=== PATIENT | male | born 1940 | race Caucasian/White ===

== ENCOUNTER 2017-07-26 08:27 | Outpatient (CLI) | payer MEDICARE, BC ==
--- NOTE | 2017-07-26 13:38 | NM ---
NUCLEAR MEDICINE MYOCARDIAL PERFUSION SCAN: 07/26/2017 HISTORY: Chest pain. COMPARISON: None. TECHNIQUE: SPECT imaging of the left ventricular myocardium is obtained during rest and stress, following the in travenous administration of 9 and 31.5 millicuries of technetium 99m labeled sestamibi. FINDINGS: There is a small, fixed defect at the cardiac apex with myocardial thinning. The differential diagno sis includes an area of physiologic thinning versus prior infarction. No reversible defect is seen. Left ventricular wall motion appears normal, which would favor thinning at the apex over prior small infarction. TID is 1.27. EDV is 130 mL. ESV is 68 mL. Left ventricular ejection fraction is approximately 48%. IMPRESSION: 1. Fixed defect at the cardiac apex. No reversible defect seen. 2. TID of 1.27. 3. Normal left ventricular wall motion. 4. Left ventricular ejection fraction estimated at 48%. POS: MICHAEL
[2017-07-26] MEDS ORDERED: ADENOSINE 60 MG/20 ML VIAL ONE (17:25)
== END 2017-07-26 08:28 | disposition home or self-care (01) ==
LOC: NM 08:27
PROVIDERS: ATTEND Family Medicine
DX: R07.9 Chest pain, unspecified (principal)
CPT/HCPCS: 78452; 93017; A9500; J0153

== ENCOUNTER 2018-02-15 09:00 | Outpatient (CLI) | payer MEDICARE, BC ==
--- NOTE | 2018-02-15 10:50 | CT ---
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 COMPARISON: None. TECHNIQUE: Postcontrast soft tissue neck CT is performed in the axial plane. Reformatted images are submitted fo r interpretation. FINDINGS: Visualized brain parenchyma is unremarkable. Bilateral ocular lenses are appropriately located. Both globes are intact. Retrobulbar fat is preserv ed. Note, the entire orbits are not included on this exam. Adequate aeration of the visualized sinuses and mastoid air cells. Aerodigestive tract is patent. No mucosal abnormality. There is mild fullness of the palatine tonsils , nonspecific. Midline fatty raphe of the tongue is preserved. No significant lymphoid hyperplasia at the tongue base. Epiglottis is unremarkable. Preepiglottic fat is preserved. The supraglottic, glott ic, and subglottic larynx is patent. Submandibular glands and parotid glands have symmetric attenuation. Enlarged right thyroid lobe measuring at least 2.5 x 2.3 cm. Incomplete evaluation. Grossly, the great vessels of the neck are patent. No significant stenosis. No evidence of lymphadenopathy by size criteria. Upper mediastinum is unremarkable. Lung apices demonstrate minimal ground-glass opacities. IMPRESSION: 1. Enlarged right thyroid lobe. Nonemergent thyroid ultrasound is recommended. 2. No evidence of lymphadenopathy. 3. Mild prominence of the palatine tonsils bilaterally, which is nonspecific. POS: [facility]
--- NOTE | 2018-02-15 11:17 | CT ---
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 COMPARISON: CT abdomen and pelvis without contrast stone protocol dated 04/04/16. FINDINGS: There is a 4.0 mm somewhat ovoid nodule within the right middle lobe, series 3, image 40. No other pu lmonary nodules present. No adenopathy of the mediastinum. There is an approximately 2.8 cm nodule within the right lobe of the thyroid. The pulmonary arterial size is normal. Mild coronary artery calcifications. The thoracic aorta is nonaneurysmal. Liver is unremarkable. Small hypodensity hepatic segment 5, unchanged from a 2016 examination, sugges tive of a cyst. There is also a hypodensity interpolar left kidney measuring fluid attenuation and doherty s not changed from 2016 suggestive of a simple cyst. Moderate atherosclerotic plaque aortoiliac system. No dilated loops of large or small bowel. Mild div erticular disease of sigmoid colon with active current inflammation. In hepatic segment 7, abutting the diaphragm, is a focal 7.0 mm area of what appears to be round enha ncement. There is adjacent motion artifact. Portal vein is patent. Gallbladder is unremarkable. Spleen is unremarkable. No perinephric stranding. Bilateral hip arthroplasties are in place. Advanced degenerative disease of the pubic symphysis. Adva nced degenerative changes of the left SI joint with fusion. Posterior superior SI joint. There is a subtle cortical lucency involving the inner table of the left 6th rib. Total sclerosis pos terolateral left 10th rib. Moderate facet arthrosis lower lumbar spine. IMPRESSION: 1. 4.0 mm nodule within the right middle lobe is not definitively malignant. Close attention on foll ow-up imaging is recommended. 2. Single focal area of hyperenhancement within the hepatic segment 7 near the dome measuring just u nder 7.0 mm, series 2, image 56. Malignancy is a possibility, although too small to fully characteriz e. Attention on follow-up imaging recommended. POS: MICHAEL
== END 2018-02-15 09:01 | disposition home or self-care (01) ==
LOC: CT 09:00
PROVIDERS: ATTEND Internal Medicine Hematology & Oncology
DX: C43.8 Malignant melanoma of overlapping sites of skin (principal); R91.1 Solitary pulmonary nodule; E04.9 Nontoxic goiter, unspecified
CPT/HCPCS: 70491; 71260; 74177; 82565

== ENCOUNTER 2018-05-17 14:16 | Outpatient (CLI) | payer MEDICARE, BC ==
--- NOTE | 2018-05-17 16:12 | ULT ---
CAROTID ULTRASOUND: 05/17/18 COMPARISON: None. HISTORY: Dizziness. TECHNIQUE: Multiplanar luna scale and color doppler images were obtained in a carotid ultrasound. Spectral darshan lysis of the doppler waveforms were performed. FINDINGS: A minimal amount of plaque is seen surrounding both carotid bifurcations. The doppler waveforms are n ormal bilaterally. Peak systolic velocity in the right ICA is 120 cm/s. The peak systolic velocity in the right CCA is 1 00 cm/s. The right ICA/CCA ratio is 1.2. Peak systolic velocity in the left ICA is 89 cm/s. peak systolic velocity in the left CCA is 102 cm/s . The left ICA/CCA ratio is 0.9. Both vertebral arteries demonstrate antegrade flow without focal stenosis. IMPRESSION: No evidence of hemodynamically significant stenosis. POS: MICHAEL
== END 2018-05-17 14:17 | disposition home or self-care (01) ==
LOC: BICULT 14:16
PROVIDERS: ATTEND Family Medicine
DX: R55 Syncope and collapse (principal)
CPT/HCPCS: 93880

== ENCOUNTER 2018-05-22 08:16 | Outpatient (CLI) | payer MEDICARE, BC ==
--- NOTE | 2018-05-22 11:22 | CT ---
CHEST CT SCAN WITH IV CONTRAST: History: 77-year-old male with history of nodule. Patient has melanoma. 4 mm nodule in the right middle lobe. Comparison: 02-15-18 FINDINGS: Nodular enlargement of the right lobe of the thyroid, stable. Small, 0.4 cm diameter circumscribed no dule in the right middle lobe, stable. Stable circumscribed low attenuation focus in the caudal aspec t of the right lobe of the liver, statistically a small cyst. Calcifications within the pancreas, jennifer dence for chronic pancreatitis. No mediastinal mass or adenopathy. No pleural effusion or pericardial effusion. Three vessel coronary artery calcific disease. The previously mentioned focus of hyperinte nsity involving the subdiaphragmatic liver is not redemonstrated on this study and may well have repr esented some artifact. IMPRESSION: Stable 0.4 cm diameter circumscribed nodule in the right middle lobe. Stable enlarged nodular right l obe of thyroid. Small stable right lobe of liver probable cyst. Stable scattered pancreatic punctate calcifications. No evidence for other significant new process. POS: MICHAEL
[2018-05-22] MEDS ORDERED: Iopamidol 370 76% 100 ML VIAL ONE (15:03)
== END 2018-05-22 08:17 | disposition home or self-care (01) ==
LOC: BICCT 08:16
PROVIDERS: ATTEND Internal Medicine Hematology & Oncology
DX: E04.1 Nontoxic single thyroid nodule (principal); C43.8 Malignant melanoma of overlapping sites of skin
CPT/HCPCS: 71260; 82565

== ENCOUNTER 2018-11-28 08:41 | Outpatient (CLI) | payer MEDICARE, BC ==
[~2018-11-28 08:41] MED LIST: ISOVUE-370 76%-LOCM 1 ML ONE
--- NOTE | 2018-11-28 10:09 | CT ---
CT CHEST WITH IV CONTRAST: HISTORY: Lung nodule, malignant melanoma COMPARISON: 05/22/2018 FINDINGS: Right thyroid lobe enlargement is stable. No mediastinal, hilar or axillary mass or lymphadenopathy s een. There is no evidence of thoracic aortic aneurysm or dissection. No pleural or pericardial effusions are seen. 4 mm solid nodule in the right middle lobe is stable. No new lung nodules are identified. There are degenerative changes in the spine. Vascular calcifications are again seen. Pancreatic calci fications in the upper abdominal tomograms are redemonstrated. IMPRESSION: Stable exam.
== END 2018-11-28 08:42 | disposition home or self-care (01) ==
LOC: BICCT 08:41
PROVIDERS: ATTEND Internal Medicine Hematology & Oncology
DX: R91.1 Solitary pulmonary nodule (principal)
CPT/HCPCS: 71260; Q9966

== ENCOUNTER 2019-07-12 07:34 | Outpatient (CLI) | payer MEDICARE, BC ==
--- NOTE | 2019-07-12 09:09 | CT ---
CT CHEST WITH IV CONTRAST: INDICATION: Enlarged lymph nodes. Palpable left axillary lymph node. Known pulmonary nodules which have been fo llowed. COMPARISON: Comparison made to CT chest 11/28/2018 and 05/22/2018. FINDINGS: Lungs show no evidence of infiltrate or effusion. The 4 mm nodule in the right middle lobe which has been described previously is again seen and is unc hanged from prior studies. There is a 6 mm nodule in the left lower lobe which is stable from 11/28/2018. This nodule has increa sed slightly when compared to 05/22/2018. No other pulmonary nodule identified. The mediastinum is unremarkable with nonspecific lymph nodes which are stable. No evidence of medias tinal adenopathy. Review of the axilla shows nonspecific axillary lymph nodes which appear stable. There is a left axi llary lymph node measuring 1.3 cm which is unchanged from the prior studies. Nonspecific axillary ly mph nodes are seen bilaterally which appear stable. The right lobe of the thyroid is enlarged and heterogeneous and has been described previously. This remains stable. Osseous structures are unremarkable and stable. Images through the upper abdomen are unremarkable. IMPRESSION: 1. There are 2 pulmonary nodules as described above, 1 in the right middle lobe and another in the l eft lower lobe. These are stable from the prior exam of 11/28/2018. 2. Nonspecific axillary lymph nodes are unchanged. 3. The enlarged heterogeneous right lobe of thyroid is stable. POS: MICHAEL
== END 2019-07-12 07:35 | disposition home or self-care (01) ==
LOC: BICCT 07:34
PROVIDERS: ATTEND Internal Medicine Hematology & Oncology
DX: C43.9 Malignant melanoma of skin, unspecified (principal); R59.0 Localized enlarged lymph nodes; R91.8 Other nonspecific abnormal finding of lung field; E04.9 Nontoxic goiter, unspecified
CPT/HCPCS: 71260

== ENCOUNTER 2019-08-29 07:34 | Outpatient (CLI) | payer MEDICARE, BC ==
[2019-08-29] MEDS ORDERED: ADENOSINE 60 MG/20 ML VIAL ONE ×2 (09:32→09:35)
--- NOTE | 2019-08-29 11:19 | NM ---
Pharmacologic myocardial perfusion study HISTORY: Chest pain, unspecified. COMPARISON: 07/26/2017 FINDINGS: There is normal uptake and distribution of radiotracer seen throughout the left ventricular myocardiu m. No reversible defect is seen between the stress and resting acquisitions. Quantitative analysis shows no significant reversible defect. Gated images demonstrate normal ventricular wall motion and w all thickening. The calculated left ventricular ejection fraction is 54%. Left ventricular ejection fraction on prior study in 2018 was 48%. IMPRESSION: 1. Normal myocardial perfusion study without evidence of a reversible defect seen to suggest ischemia . 2. Left ventricular ejection fraction of 54%.
== END 2019-08-29 07:35 | disposition home or self-care (01) ==
LOC: NM 07:34
PROVIDERS: ATTEND Family Medicine
DX: R07.9 Chest pain, unspecified (principal)
CPT/HCPCS: 78452; 93017; A9500; J0153

== ENCOUNTER 2020-01-07 08:41 | Outpatient (CLI) | payer MEDICARE, BC ==
--- NOTE | 2020-01-07 10:15 | MRI ---
MR the lumbar spine without contrast INDICATION: 71-year-old male with low back pain COMPARISON: None. TECHNIQUE: Multiplanar multisequence MR images were obtained of lumbar spine without IV contrast. FINDINGS: Bone marrow: There is Modic endplate degenerative change at L3-4 and L4-5. Distal spinal cord and conus: Normal. The conus seen to terminate at L1-L2. Visualized retroperitoneum and paraspinal soft tissues: There is partial visualization of a 1.7 cm T2 hyperintense lesion involving the lateral mid left kidney seen on a prior CT dated February 15, 2018 likely reflecting a cyst. There is an 8 mm cyst involving the anterior aspect of the right mid kidney . No pathologically enlarged lymph nodes are evident. Vertebral levels: L5-S1: There is an asymmetric to the left broad-based disc osteophyte complex and facet joint degener ative change inducing moderate left lateral recess narrowing with without definite impingement of the traversing S1 nerve root. The disc degenerative and facet osteoarthritic change in addition to lo ss of disc space height induces mild to moderate left and mild right neural foraminal narrowing.. L4-5: There is a broad-based disc osteophyte complex with facet hypertrophy and ligament flavum hyper trophy inducing severe central canal narrowing with moderate to severe bilateral neural foraminal narrowing. L3-4: There is a broad-based disc bulge with facet hypertrophy and ligamentum flavum hypertrophy lanre cing severe central canal narrowing with [id number] right and mild left neural foraminal narrowing. L2-3: There is a broad-based bulge and facet hypertrophy inducing mild central canal narrowing and mi ld neural foraminal narrowing. L1-L2: There is a mild broad-based bulge inducing no appreciable central canal or neural foraminal na rrowing. T12-L1: No appreciable central canal or neuroforaminal narrowing. IMPRESSION: 1. Severe central canal narrowing at L3-4 and L4-5. 2. Moderate to severe bilateral neural foraminal narrowing at L4-5. 3. Mild to moderate right and mild left neural foraminal narrowing at L3-4. 4. Mild to moderate left and mild right neural foraminal narrowing at L5-S1. 5. Bilateral renal cysts.
== END 2020-01-07 08:42 | disposition home or self-care (01) ==
LOC: SCSMRI 08:41
PROVIDERS: ATTEND Family Medicine
DX: M51.06 Intervertebral disc disorders with myelopathy, lumbar region (principal); M48.061 Spinal stenosis, lumbar region without neurogenic claudication; M48.07 Spinal stenosis, lumbosacral region; N28.1 Cyst of kidney, acquired
CPT/HCPCS: 72148

== ENCOUNTER 2020-01-25 09:43 | Outpatient (CLI) | payer MEDICARE, BC ==
--- NOTE | 2020-01-25 11:36 | RAD ---
LUMBAR SPINE 3 VIEWS: Lateral views obtained in neutral, flexion, and extension. INDIDCATION: Lumbar spinal stenosis. Low back pain. FINDINGS: Prominent hypertrophic degenerative changes are present with prominent osteophytes seen from the ante rolateral lumbar vertebra, most pronounced at L2-3, L3-4, L4-5, and L5-S1. There is loss of disc spac e at all of these levels. Prominent facet hypertrophy. No evidence of spondylolisthesis. No significa nt change in alignment with flexion or extension. IMPRESSION: Moderate hypertrophic degenerative changes as described. POS: [facility]
== END 2020-01-25 09:44 | disposition home or self-care (01) ==
LOC: SCSRAD 09:43
PROVIDERS: ATTEND Neurological Surgery
DX: M48.061 Spinal stenosis, lumbar region without neurogenic claudication (principal); M47.816 Spondylosis without myelopathy or radiculopathy, lumbar region; M25.78 Osteophyte, vertebrae; M51.86 Other intervertebral disc disorders, lumbar region; M51.87 Other intervertebral disc disorders, lumbosacral region
CPT/HCPCS: 72100

== ENCOUNTER 2020-02-11 07:33 | Outpatient (CLI) | payer MEDICARE, BC, OTHER ==
[2020-02-11 16:49] LABS: Hemoglobin 14.6 g/dL (14.0-18.0); Mean Corpuscular HGB CONC 32.7 g/dL (32.0-36.0); Mean Corpuscular Hemoglobin 26.9 pg (27.0-31.0); Mean Corpuscular Volume 82.3 fL (78.0-98.0); Platelet Count 199 thou/uL (130-400); RBC Distribution Width 13.1 % (11.5-14.5); Red Blood Cell (RBC) Count 5.44 mill/uL (4.70-6.10); White Blood Cell (WBC) Count 6.8 thou/uL (4.8-10.8)
[2020-02-11 16:50] LABS: INR-International Normal Ratio 0.9; PTT 29.2 sec (22.9-36.1); Prothrombin Time 11.7 sec (12.0-14.7)
[2020-02-12 12:06] LABS: SARS-CoV-2 MS2 Positive; SARS-CoV-2 N Gene Negative; SARS-CoV-2 S Gene Negative; SARS-CoV-2 by NAA Not Detected (NotDetected); SARS-CoV-2 orf1ab Negative
== END 2020-02-11 07:34 | disposition home or self-care (01) ==
LOC: LABBT 07:33
PROVIDERS: ATTEND Neurological Surgery
DX: Z01.818 Encounter for other preprocedural examination (principal); Z11.59 Encounter for screening for other viral diseases; M48.061 Spinal stenosis, lumbar region without neurogenic claudication
CPT/HCPCS: 85027; 85610; 85730; 93005; U0003; 87635; 93010

== ENCOUNTER 2020-02-14 10:08 | Observation (INO) | payer MEDICARE, BC ==
--- NOTE | 2020-02-12 22:31 | HP ---
REASON FOR H AND P: Laminectomy, case #[id number] on February 14, 2020. CHIEF COMPLAINT: Lower back and bilateral leg pain. HISTORY OF PRESENT ILLNESS: Mr. Benjamin is a 79 year-old gentleman with left leg pain greater than his right leg pain. He describes pain radiating into his left gluteal muscle and posterior thigh, not passing his knee. He can walk about two blocks, but sometimes if he walks too far, his left leg causes him to stumble. He has been receiving lumbar epidural injections, which have not been helping. Denies any bladder or bowel dysfunction. REVIEW OF SYSTEMS: CONSTITUTIONAL: Denies fever or chills. EARS, NOSE, AND THROAT: Denies change in vision or hearing. CARDIAC: Denies chest pain, shortness of breath, or diaphoresis. PULMONARY: Denies shortness of breath, cough, or hemoptysis. GI: Denies fecal incontinence, abdominal pain, nausea, vomiting, diarrhea, change in stool formation and consistency. : Denies urinary incontinence, trouble with urination, frequency of urination , or bloody urine. SKIN: Denies skin rash, bruising, bleeding, or skin masses. MUSCULOSKELETAL: As per history of present illness. NEUROLOGICAL: As per history of present illness. PSYCHOLOGICAL: Denies anxiety, depression, or behavior changes. PAST MEDICAL HISTORY: HTN, BPH, melanoma in situ, chin and right cheek. PAST SURGICAL HISTORY: As stated before, left hip replacement in 2015, right hip replacement in 2010, melanoma biopsies in 2017, and diskectomy L4-5 in 1969. HOSPITALIZATIONS: Left hip replacement in 2015, eye infection in 2014, and right hip replacement in 2010. FAMILY HISTORY: Father , diagnosed with none. Mother , diagnosed with stroke. Siblings , diagnosed with cancer. SOCIAL HISTORY: Former smoker, quit in 2008. Currently lives with spouse. Denies alcohol or illicit drugs. MEDICATIONS: 1. Baby aspirin. 2. Losartan 100 mg. 3. Amlodipine 5 mg. 4. Dutasteride 0.5 mg. PHYSICAL EXAMINATION: VITAL SIGNS: Weight 217, height 72 inches. HEENT: Pupils are equal. Extraocular movements are intact. NECK: Soft, supple. No masses are noted. Range of motion is intact and nonpainful. NEUROLOGICAL: Awake, alert, and oriented x3. Memory, attention, fund of knowledge normal. Cranial nerves grossly intact. Lower extremity, slight weakness in his left leg. Gait and station: [id number] normal, normal gait, tandem walking acceptable. He can walk on his heels and toes. IMAGING: MRI L-spine: L3-4 and L4-5 severe stenosis, left L5-S1 lat recess. L-spine x-ray: Flex/ex normal, stable. ASSESSMENT: 1. Spinal stenosis, lumbar region without neurogenic claudication. 2. Radiculopathy of the lumbar region. MRI of the L-spine: Multiple levels of canal stenosis and foraminal narrowing. PLAN: 1. L3-4, L4-5 laminectomy. Left L5-S1 hemilaminectomy, microdiskectomy. 2. Preop labs: CBC, PT/PTT, COVID-19. 3. Anesthesia clearance. 4. Informed consent: We discussed the indications, risks, benefits, alternatives, and expected results from surgery. The risks discussed included, but were not limited to, bleeding, infection, CSF leak, nerve damage, weakness, incontinence, cauda equina injury, arachnoiditis, paralysis, ventilator dependency, wheelchair dependency, loss of vision, cardiopulmonary complications of anesthesia or . Long-term complications discussed included, but were not limited to spinal instability and future surgery. He understands the risks and is willing to proceed. Job ID: [id number] [facility]
[~2020-02-14 10:08] MED LIST changes: +Dexamethasone 20 MG/5 ML VIAL ONE; +EPHEDRINE 25 MG/5 ML SYRINGE ONE; +Glycopyrrolate 0.2 MG/ML 5 ML SYRINGE ONE; -ISOVUE-370 76%-LOCM 1 ML ONE; +Lidocaine 1% PF 5 ML VIAL ONE; +Ondansetron PF 4 MG/2 ML Vial ONE; +PHENYLEPHRINE-NS 100 MCG/ML 10 ML SYRINGE ONE; +PROPOFOL 200 MG/20 ML VIAL ONE; +Rocuronium Bromide 10 MG/ML (10ML VIAL) ONE
[2020-02-14] MEDS ORDERED: Thrombin 5000 UNITS/5 ML VIAL ONE ×2 (10:39)
[2020-02-14] MEDS ORDERED: Bupivacaine PF 0.5% 30 ML VIAL ONE (10:39)
[2020-02-14] MEDS ORDERED: EPINEPHrine 1 MG/ML AMP ONE (10:39)
[2020-02-14] MEDS ORDERED: Fentanyl 250 MCG/5 ML VIAL ONE (12:05)
[2020-02-14] MEDS ORDERED: Phenylephrine 10 MG/ML VIAL ONE (13:52)
[2020-02-14] MEDS ORDERED: Bacitracin Zinc Ointment 30 gm TUBE ONE (16:09)
--- NOTE | 2020-02-14 16:21 | OP ---
DATE OF PROCEDURE: 02/14/2020 VOCATIONAL PSYCHOLOGIST: Efren Chandler PA-C PREOPERATIVE INDICATION: Treat pain and prevent neurological deterioration. 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 PROCEDURE PERFORMED: Decompressive laminectomy, medial facetectomy, foraminotomy L3-L4, L4-5, and left L5-S1, revision operation. PREOPERATIVE MEDICATION: Ancef 2 g IV. DRAIN NUMBER: Zero. DRAIN TYPE: None. DESCRIPTION OF PROCEDURE: The patient was brought to the operating room. General endotracheal anesthesia was induced. The patient was carefully positioned on the operating table with his chest and hips supported by gel-filled chest rolls. A lateral fluoro radiograph confirmed that the previous incision could give us access from L3 to the sacrum. Incision was marked out and the lumbar skin was sterilely prepped and draped. We opened with a 10 blade knife and we controlled the bleeding with bipolar and monopolar cautery. We used monopolar cautery to dissect through subcutaneous tissues to the thoracodorsal fascia. We incised the fascia in the midline and reflected paraspinal muscles and scar tissue off the spinous process and lamina of L3, L4, L5 and the top of the sacrum. A lateral fluoro radiograph confirmed the levels upon which we were operating. We then used an Adson rongeur and a high-speed drill to remove the spinous processes from L3 to the left side of L5 and the top of the sacrum on the left side as well as thinning of the laminar bone with a drill. Using Kerrison rongeurs, we fashioned a laminectomy on the left at L5-S1 and bilaterally at L4-L5 and L3-L4. We took our laminectomy all the way to the pedicles of L3 and down past the S1 foramen on the left side. With midline laminectomy completed, we turned our attention to decompressing the lateral recesses. Here, scar tissue was adherent to the lateral confines of the spinal canal at L4-L5 and L5-S1 and this required careful freeing of scar. Once the thecal sac was mobile, we widened our laminectomy defect with Kerrison rongeurs. We performed medial facetectomies at L3-L4 and L4-L5 bilaterally and L5-S1 on the left side. We performed foraminotomies over the exiting L3, L4, L5, and left S1 nerve roots. We ensured a Irizarry ball probe could pass through the canal out the foramen with each nerve root without impingement. We then waxed the bone edges. We infused local anesthetic in the paraspinal muscles. We treated the wound with vancomycin powder and we closed in anatomical layers. This was a clean case, no contamination. Job ID: [id number]
[2020-02-14] MEDS ORDERED: HYDROmorphone 2 MG/ML VIAL SLOW IVP PRN (16:30)
[2020-02-14] MEDS ORDERED: Promethazine HCl 25 MG/ML VIAL SLOW IVP PRN (16:30)
[2020-02-14] MEDS ORDERED: Ondansetron HCl/PF 4 MG/2 ML Vial IVP PRN (16:30)
[2020-02-14] MEDS ORDERED: Promethazine HCl 25 MG/ML VIAL IM PRN (16:34)
[2020-02-14] MEDS ORDERED: Bisacodyl 10 MG SUPP PR PRN (16:34)
[2020-02-14] MEDS ORDERED: Mag-Al 1200 mg/1200 mg/30 ML UDCUP PO PRN (16:34)
[2020-02-14] MEDS ORDERED: diphenhydrAMINE 25 MG CAP PO PRN (16:34)
[2020-02-14] MEDS ORDERED: Milk Of Magnesia 30 ML UDCUP PO PRN (16:34)
[2020-02-14] MEDS ORDERED: Acetaminophen/Codeine 30-300mg Tablet PO PRN (16:34)
[2020-02-14] MEDS ORDERED: tiZANidine HCl 4 MG TAB PO PRN (16:34)
[2020-02-14] MEDS ORDERED: traMADol HCl 50 MG TAB PO PRN (16:34)
[2020-02-14] MEDS ORDERED: Tamsulosin HCl 0.4 MG CAP PO PRN (16:34)
[2020-02-14] MEDS ORDERED: Prochlorperazine 10 MG/2 ML VIAL IM PRN (16:34)
[2020-02-14] MEDS ORDERED: Acetaminophen 325 MG TAB PO PRN (16:34)
[2020-02-14] MEDS ORDERED: Scopolamine 1.5 mg/72 hour Patch TD PRN (16:34)
[2020-02-14] MEDS ORDERED: Fentanyl 100 MCG/2 ML VIAL ONE ×2 (16:44→17:06)
[2020-02-14] MEDS ORDERED: HYDROmorphone 2 MG/ML VIAL ONE (17:13)
[2020-02-14] MEDS ORDERED: Tamsulosin HCl 0.4 MG CAP ONE (17:36)
[2020-02-14] MEDS: Sodium Chloride 0.9% 1,000 ML IV SCH (20:24)
[2020-02-14] MEDS: CEFAZOLIN 2 GM in Premix Bag 1 BAG IVPB SCH (20:54)
[2020-02-14] MEDS: Morphine 2 MG/ML VIAL SLOW IVP PRN (21:03)
[2020-02-15] MEDS: Morphine 2 MG/ML VIAL SLOW IVP PRN ×3 (01:51→14:13)
[2020-02-15] MEDS: CEFAZOLIN 2 GM in Premix Bag 1 BAG IVPB SCH (04:11)
[2020-02-15] MEDS: Sodium Chloride 0.9% 1,000 ML IV SCH ×2 (04:16→08:42)
[2020-02-15 04:18] VITALS: BMI 29.1
--- NOTE | 2020-02-15 07:11 | PRG ---
DATE OF SERVICE: 02/15/2020 I saw Mr. Benjamin in his hospital room this morning. He is admitted on 23-hour observation following a lumbar laminectomy. His back has been sore, but each time he has gotten out of bed overnight to use the restroom, it has been easier for him to stand and walk. He does not notice the radiating radicular pain down the legs. Overnight, the highest temperature recorded among the electronic vital signs was 99.2 degrees Fahrenheit. Blood pressures have ranged between the 120s and 150s. I do not find any new weakness or numbness in the legs. Once Mr. Benjamin mobilizes with physical therapy and our nursing staff, and becomes independent for activities of daily living, he can be discharged. Followup arrangements have been made. We went over activity restrictions yesterday. Bandage can come off tomorrow and showers start on Tuesday. There should be no bath. We will check the incision in 2 to 3 weeks, and we can start physical therapy after that appointment. Job ID: [id number]
[2020-02-15] MEDS ORDERED: Amlodipine 5 MG TAB PO SCH (09:00)
[2020-02-15] MEDS ORDERED: Dutasteride 0.5 MG CAP PO SCH (09:00)
[2020-02-15] MEDS ORDERED: Losartan 25 MG TAB PO SCH (09:00)
[2020-02-15 11:29] VITALS: BP 100/58; TEMP 99.2
== END 2020-02-15 15:00 | disposition home or self-care (01) ==
LOC: SDC 10:08 → ONC 16:32
PROVIDERS: ADMIT Neurological Surgery; ATTEND Neurological Surgery
PROC: 01NB0ZZ Release Lumbar Nerve, Open Approach (ICD-10-PCS; principal; 2020-02-14)
DX: M48.062 Spinal stenosis, lumbar region with neurogenic claudication (principal); M54.16 Radiculopathy, lumbar region; I10 Essential (primary) hypertension; N40.0 Benign prostatic hyperplasia without lower urinary tract symptoms; Z79.82 Long term (current) use of aspirin; Z79.899 Other long term (current) drug therapy; Z87.891 Personal history of nicotine dependence
CPT/HCPCS: 63047; 63048 ×2; 76000; 93005; 97110; 97139 ×2; J2270 ×2; 93010; 96361; 96365; 96366; 96375; 96376; G0378; J0171; J0690; J1100; J1170; J2370; J2405; J2704; J3010; J3370; J3490; S0020

== ENCOUNTER 2020-10-15 14:56 | Outpatient (CLI) | payer MEDICARE, BC | END 2020-10-15 14:57 | disposition home or self-care (01) | LOC: BICULT 14:56 | PROVIDERS: ATTEND Family Medicine | DX: E04.1 Nontoxic single thyroid nodule (principal) | CPT/HCPCS: 76536 ==

== ENCOUNTER 2020-10-23 08:19 | Outpatient (CLI) | payer MEDICARE, BC ==
[2020-10-23 09:46] LABS: Hemoglobin 13.9 g/dL (13.5-17.5); Mean Corpuscular HGB CONC 32.9 g/dL (32.0-36.0); Mean Corpuscular Hemoglobin 26.8 pg (27.0-33.0); Mean Corpuscular Volume 81.5 fl (81.2-95.1); Mean Platelet Volume 10.7 fl (7.4-10.4); Platelet Count 188 10x3/uL (150-450); Red Blood Cell (RBC) Count 5.19 10x6/uL (4.32-5.72); White Blood Cell (WBC) Count 5.4 10x3/uL (3.5-10.5)
[2020-10-23 10:00] LABS: Anion Gap 10 mmol/L (10-20); BUN (Urea Nitrogen) 20 mg/dL (8.4-25.7); Calc. Creatinine Clearance 0 mL/min (70-130); Calcium 9.2 mg/dL (7.8-10.44); Carbon Dioxide 26 mmol/L (23-31); Chloride 104 mmol/L (98-107); Glucose 114 mg/dL (83-110); Potassium 4.3 mmol/L (3.5-5.1); Sodium 136 mmol/L (136-145)
== END 2020-10-23 08:20 | disposition home or self-care (01) ==
LOC: LABBT 08:19
PROVIDERS: ATTEND Urology
DX: Z01.818 Encounter for other preprocedural examination (principal); N47.1 Phimosis; E04.1 Nontoxic single thyroid nodule; L82.1 Other seborrheic keratosis; I10 Essential (primary) hypertension
CPT/HCPCS: 80048; 85027; 93005; 93010

== ENCOUNTER 2020-10-28 07:34 | Day surgery (SDC) | payer MEDICARE, BC ==
[2020-10-27 14:22] VITALS: BMI 29.5
[2020-10-28] MEDS ORDERED: Bupivacaine 0.25% HCL 30 ML VIAL ONE (09:58)
[2020-10-28] MEDS ORDERED: Fentanyl 100 MCG/2 ML VIAL ONE (09:59)
[2020-10-28] MEDS ORDERED: PROPOFOL 200 MG/20 ML VIAL ONE (10:13)
[2020-10-28] MEDS ORDERED: Succinylcholine 200 MG/10 ml SYRINGE FS ONE (10:13)
[2020-10-28] MEDS ORDERED: Rocuronium Bromide 10 MG/ML (10ML VIAL) ONE (10:13)
[2020-10-28] MEDS ORDERED: Lidocaine 1% PF 5 ML VIAL ONE (10:13)
[2020-10-28] MEDS ORDERED: Ondansetron PF 4 MG/2 ML Vial ONE (10:13)
[2020-10-28] MEDS ORDERED: Dexamethasone 20 MG/5 ML VIAL ONE (10:13)
[2020-10-28] MEDS ORDERED: Glycopyrrolate 0.2 MG/ML 5 ML SYRINGE ONE (10:13)
[2020-10-28] MEDS ORDERED: HYDROcodone/Acetaminophen 5/325 mg Tablet ONE (11:37)
== END 2020-10-28 13:00 | disposition home or self-care (01) ==
LOC: SDC 07:34
PROVIDERS: ATTEND Urology
PROC: 0VTTXZZ Resection of Prepuce, External Approach (ICD-10-PCS; principal; 2020-10-28)
DX: N47.1 Phimosis (principal); N40.0 Benign prostatic hyperplasia without lower urinary tract symptoms; Z79.82 Long term (current) use of aspirin; Z79.899 Other long term (current) drug therapy
CPT/HCPCS: J0690; J1100; J2405; J2704; J3010; S0020

== ENCOUNTER 2020-11-05 12:31 | Day surgery (SDC) | payer MEDICARE, BC ==
[~2020-11-05 12:31] MED LIST changes: -Dexamethasone 20 MG/5 ML VIAL ONE; -EPHEDRINE 25 MG/5 ML SYRINGE ONE; -Glycopyrrolate 0.2 MG/ML 5 ML SYRINGE ONE; -Ondansetron PF 4 MG/2 ML Vial ONE; -PHENYLEPHRINE-NS 100 MCG/ML 10 ML SYRINGE ONE; -PROPOFOL 200 MG/20 ML VIAL ONE; -Rocuronium Bromide 10 MG/ML (10ML VIAL) ONE; +Sodium Bicarbonate 2.5 MEQ/5 ML VIAL ONE
[2020-11-05 13:55] VITALS: BMI 30.2
[2020-11-05 14:01] VITALS: BP 125/78; TEMP 98
== END 2020-11-05 13:50 | disposition home or self-care (01) ==
LOC: ULT 12:31
PROVIDERS: ATTEND Family Medicine
PROC: 0G9H3ZX Drainage of Right Thyroid Gland Lobe, Percutaneous Approach, Diagnostic (ICD-10-PCS; principal; 2020-11-05)
DX: E04.1 Nontoxic single thyroid nodule (principal); I10 Essential (primary) hypertension; L82.1 Other seborrheic keratosis; N40.0 Benign prostatic hyperplasia without lower urinary tract symptoms; Z85.820 Personal history of malignant melanoma of skin; Z86.73 Personal history of transient ischemic attack (TIA), and cerebral infarction without residual deficits; Z87.891 Personal history of nicotine dependence; Z79.82 Long term (current) use of aspirin; Z79.899 Other long term (current) drug therapy
CPT/HCPCS: 60100; 76942; 88173

== ENCOUNTER 2020-11-14 08:41 | Outpatient (CLI) | payer MEDICARE, BC ==
[2020-08-28 12:13] LABS: Hemoglobin 13.2 g/dL (13.5-17.5); Mean Corpuscular HGB CONC 32.2 g/dL (32.0-36.0); Mean Corpuscular Volume 80.9 fl (81.2-95.1); Mean Platelet Volume 10.8 fl (7.4-10.4); Platelet Count 182 10x3/uL (150-450); RBC Distribution Width 14.3 % (11.5-14.5); Red Blood Cell (RBC) Count 5.07 10x6/uL (4.32-5.72); White Blood Cell (WBC) Count 5.3 10x3/uL (3.5-10.5)
[2020-08-28 12:19] LABS: Anion Gap 11 mmol/L (10-20); BUN (Urea Nitrogen) 23 mg/dL (8.4-25.7); Calc. Creatinine Clearance 0 mL/min (70-130); Calcium 9.2 mg/dL (7.8-10.44); Carbon Dioxide 25 mmol/L (23-31); Chloride 108 mmol/L (98-107); Glucose 101 mg/dL (83-110); Potassium 4.2 mmol/L (3.5-5.1); Sodium 140 mmol/L (136-145)
[2020-08-28 12:37] LABS: PTT 26.8 sec (22.0-33.0); Prothrombin Time 10.3 sec (9.5-12.1)
[2020-08-28 23:04] LABS: SARS-CoV-2 PCR by NAA DETECTED (NotDetected)
[2020-11-14 12:26] LABS: Hemoglobin 13.9 g/dL (13.5-17.5)
[2020-11-14 12:51] LABS: Anion Gap 15 mmol/L (10-20); BUN (Urea Nitrogen) 20 mg/dL (8.4-25.7); Calc. Creatinine Clearance 0 mL/min (70-130); Calcium 9.3 mg/dL (7.8-10.44); Carbon Dioxide 23 mmol/L (23-31); Chloride 105 mmol/L (98-107); Glucose 110 mg/dL (83-110); Potassium 4.2 mmol/L (3.5-5.1); Sodium 139 mmol/L (136-145)
== END 2020-11-14 08:42 | disposition home or self-care (01) ==
LOC: LABBT 08:41
PROVIDERS: ATTEND Otolaryngology Plastic Surgery within the Head & Neck
DX: U07.1 COVID-19 (principal); Z01.818 Encounter for other preprocedural examination; E04.1 Nontoxic single thyroid nodule
CPT/HCPCS: 80048 ×2; 85014; 85018; 85027; 85610; 85730; 93005 ×2; U0003; U0005; 87635; 93010

== ENCOUNTER 2020-11-19 07:35 | Observation (INO) | payer MEDICARE, BC ==
[2020-11-18 10:56] VITALS: BMI 29.8
[2020-11-19] MEDS ORDERED: Fentanyl 100 MCG/2 ML VIAL ONE ×3 (09:30→13:00)
[2020-11-19] MEDS ORDERED: Midazolam HCl 2 mg/2 ml Vial ONE (09:30)
[2020-11-19] MEDS ORDERED: Lidocaine 1% w/Epinephrine 1:100K 20 ML VIAL ONE (09:31)
[2020-11-19] MEDS ORDERED: Lidocaine 1% PF 5 ML VIAL ONE (10:04)
[2020-11-19] MEDS ORDERED: PROPOFOL 200 MG/20 ML VIAL ONE (10:04)
[2020-11-19] MEDS ORDERED: Dexamethasone 20 MG/5 ML VIAL ONE (10:04)
[2020-11-19] MEDS ORDERED: Ondansetron PF 4 MG/2 ML Vial ONE (10:04)
[2020-11-19] MEDS ORDERED: Succinylcholine 200 MG/10 ml SYRINGE FS ONE (10:04)
[2020-11-19] MEDS ORDERED: PHENYLEPHRINE-NS 100 MCG/ML 10 ML SYRINGE ONE (10:04)
[2020-11-19] MEDS ORDERED: ePHEDrine Sulfate 50 MG/10 ML VIAL ONE (10:04)
[2020-11-19] MEDS ORDERED: Hydrocodone-Acetamin 15 ML UDCUP ONE (14:40)
[2020-11-19] MEDS ORDERED: HYDROcodone/Acetaminophen 10/325 mg Tablet ONE (14:41)
[2020-11-19] MEDS ORDERED: Hydrocodone-Acetamin 15 ML UDCUP PO PRN (20:53)
[2020-11-19] MEDS ORDERED: Ondansetron PF 4 MG/2 ML Vial SLOW IVP PRN (20:56)
[2020-11-19] MEDS: Sodium Chloride 0.45% 1,000 ML IV SCH (21:16)
[2020-11-19] MEDS: ceFAZolin 1 GM/D5W 1 GM in Premix Bag 1 BAG IVPB SCH (21:30)
[2020-11-20] MEDS: Sodium Chloride 0.45% 1,000 ML IV SCH (05:03)
[2020-11-20] MEDS: ceFAZolin 1 GM/D5W 1 GM in Premix Bag 1 BAG IVPB SCH (05:04)
[2020-11-20 07:42] VITALS: BP 145/73; TEMP 97.4
== END 2020-11-20 09:48 | disposition home or self-care (01) ==
LOC: SDC 07:35 → T4-B 14:28
PROVIDERS: ADMIT Otolaryngology Plastic Surgery within the Head & Neck; ATTEND Otolaryngology Plastic Surgery within the Head & Neck
PROC: 0GTH0ZZ Resection of Right Thyroid Gland Lobe, Open Approach (ICD-10-PCS; principal; 2020-11-19)
DX: E04.1 Nontoxic single thyroid nodule (principal); N40.0 Benign prostatic hyperplasia without lower urinary tract symptoms; Z87.891 Personal history of nicotine dependence; Z79.82 Long term (current) use of aspirin; Z79.899 Other long term (current) drug therapy
CPT/HCPCS: 88307; 96365; 96376; G0378; J0690; J1100; J2250; J2405; J2704; J3010

== ENCOUNTER 2021-09-18 14:27 | Outpatient (CLI) | payer MEDICARE, BC | END 2021-09-18 14:28 | disposition home or self-care (01) | LOC: SCSRAD 14:27 | PROVIDERS: ATTEND Neurological Surgery | DX: M54.50 Low back pain, unspecified (principal); M47.816 Spondylosis without myelopathy or radiculopathy, lumbar region; Z98.890 Other specified postprocedural states | CPT/HCPCS: 72110 ==

== ENCOUNTER 2022-07-30 08:54 | Outpatient (CLI) | payer MEDICARE, BC | END 2022-07-30 08:55 | disposition home or self-care (01) | LOC: CT 08:54 | PROVIDERS: ATTEND Family Medicine | DX: I63.9 Cerebral infarction, unspecified (principal) | CPT/HCPCS: 70450 ==

== ENCOUNTER 2022-08-10 14:46 | Outpatient (CLI) | payer MEDICARE, BC ==
[~2022-08-10 14:46] MED LIST changes: -Lidocaine 1% PF 5 ML VIAL ONE; +Magnevist 469MG/ML 20 ML VIAL ONE; -Sodium Bicarbonate 2.5 MEQ/5 ML VIAL ONE
== END 2022-08-10 14:47 | disposition home or self-care (01) ==
LOC: TBSIIMAG 14:46
PROVIDERS: ATTEND Family Medicine
DX: G45.9 Transient cerebral ischemic attack, unspecified (principal); H53.139 Sudden visual loss, unspecified eye
CPT/HCPCS: 70553; 82565; A9579

== ENCOUNTER 2022-08-22 12:07 | Inpatient (IN) | payer MEDICARE, BC ==
[2022-08-22 13:37] LABS: #Eosinphils 0.3 thou/uL (0.0-0.7); #Monocytes 0.5 thou/uL (0.11-0.59); #Neutrophils 4.6 thou/uL (1.40-6.50); %Basophils 0.2 % (0.0-1.0); %Eosinophils 4.4 % (0.0-10.0); %Monocytes 7.4 % (0.0-10.0); Hemoglobin 14.9 g/dL (14.0-18.0); Mean Corpuscular HGB CONC 33.8 g/dL (32.0-36.0); Mean Corpuscular Hemoglobin 28.7 pg (27.0-31.0); Mean Corpuscular Volume 84.8 fl (78.0-98.0); Mean Platelet Volume 8.5 fL (7.4-10.4); Platelet Count 171 10x3/uL (130-400); Red Blood Cell (RBC) Count 5.18 mill/uL (4.70-6.10); White Blood Cell (WBC) Count 6.4 10x3/uL (4.8-10.8)
[2022-08-22 13:52] LABS: ALT (SGPT) 35 U/L (8-55); AST (SGOT) 27 U/L (5-34); Albumin 4.2 g/dL (3.4-4.8); Alkaline Phosphatase 48 U/L (40-110); Anion Gap 14 mmol/L (10-20); BUN (Urea Nitrogen) 21 mg/dL (8.4-25.7); Bilirubin, Total 0.7 mg/dL (0.2-1.2); Calc. Creatinine Clearance 0 mL/min (70-130); Calcium 9.5 mg/dL (7.8-10.44); Carbon Dioxide 23 mmol/L (23-31); Chloride 103 mmol/L (98-107); Estimated GFR 79; Globulin 3.3 g/dL (2.4-3.5); Glucose 123 mg/dL (83-110); Potassium 3.8 mmol/L (3.5-5.1); Protein, Total 7.5 g/dL (5.8-8.1); Sodium 136 mmol/L (136-145)
[2022-08-22] MEDS ORDERED: TETANUS, DIPHTHERIA TOX,ADULT (TDVAX) 0.5 ML VIAL IM ONE (14:33)
[2022-08-22] MEDS ORDERED: Ipratropium/Albuterol 3 ML NEB NEB PRN (14:33)
[2022-08-22] MEDS ORDERED: Ondansetron PF 4 MG/2 ML Vial IVP PRN (14:33)
[2022-08-22] MEDS ORDERED: Sodium Chloride 0.9% 1,000 ML IV SCH (14:45)
[2022-08-22] MEDS ORDERED: Labetalol HCl 100 MG/20 ML VIAL ONE (14:51)
[2022-08-22] MEDS ORDERED: Morphine 2 MG/ML VIAL SLOW IVP PRN (15:11)
[2022-08-22 15:38] LABS: PTT 30.6 sec (22.9-36.1); Prothrombin Time 13.2 sec (12.0-14.7)
[2022-08-22] MEDS ORDERED: Morphine 2 MG/ML VIAL ONE (15:57)
[2022-08-22 16:27] LABS: Lactic Acid 1.3 mmol/L (0.5-2.2)
[2022-08-22 17:40] VITALS: BMI 30.4
[2022-08-22] MEDS: Acetaminophen 500 MG TAB PO SCH (20:30)
[2022-08-22] MEDS ORDERED: Famotidine/PF 20 mg/2ml Vial SLOW IVP SCH (21:00)
[2022-08-22 21:28] LABS: Bacteria/HPF None Seen HPF (None Seen); Bilirubin Negative (Negative); Blood, Urine Negative (Negative); CAUTI Indications for Culture Pelvic or flank pain; Clarity Clear (Clear); Glucose, Urine (Dipstick) Normal (Negative); Ketone, Urine 40 mg/dL (Negative); Leukocyte Negative Leu/uL (Negative); Nitrite Negative (Negative); Protein, Urine (Dipstick) Negative (Neg-Trace); RBC/HPF 0-3 HPF (0-3); Specific Gravity, Urine 1.045 (1.002-1.036); Squamous Epithelial None Seen HPF (0-3); Urobilinogen Normal mg/dL (Less than 2); WBC/HPF 0-3 HPF (0-3)
[2022-08-22 21:29] LABS: Urine Culture Reflex No No
[2022-08-22] MEDS ORDERED: levETIRAcetam in NS 1,000 MG in Premix Bag 1 BAG IVPB ONE (21:29)
[2022-08-22 21:35] LABS: Amphetamine Not Detected (NotDetected); Barbiturates Screen Not Detected (NotDetected); Benzodiazepine Screen Not Detected (NotDetected); Cocaine Metabolite Screen Not Detected (NotDetected); Methadone Not Detected (NotDetected); Methamphetamine Not Detected (NotDetected); Opiate Screen Detected (NotDetected); Oxycodone Screen Not Detected (NotDetected); Phencyclidine (PCP) Not Detected (NotDetected); THC/Cannabinoid Screen Not Detected (NotDetected); Tricyclic Screen Not Detected (NotDetected)
[2022-08-22] MEDS ORDERED: levETIRAcetam 500 MG/5 ML VIAL SLOW IVP SCH (21:45)
[2022-08-22 22:21] LABS: Anion Gap 13 mmol/L (10-20); BUN (Urea Nitrogen) 19 mg/dL (8.4-25.7); Calc. Creatinine Clearance 90 mL/min (70-130); Carbon Dioxide 25 mmol/L (23-31); Chloride 104 mmol/L (98-107); Estimated GFR 82; Glucose 154 mg/dL (83-110); Sodium 138 mmol/L (136-145)
[2022-08-22] MEDS: Tamsulosin HCl 0.4 MG CAP PO SCH (22:28)
[2022-08-23 04:20] LABS: #Monocytes 0.8 thou/uL (0.11-0.59); #Neutrophils 7.3 thou/uL (1.40-6.50); %Eosinophils 0.4 % (0.0-10.0); %Lymphocytes 10.5 % (21.0-51.0); %Monocytes 9.2 % (0.0-10.0); %Neutrophils 79.9 % (42.0-75.0); Hemoglobin 14.1 g/dL (14.0-18.0); Mean Corpuscular HGB CONC 33.9 g/dL (32.0-36.0); Mean Corpuscular Hemoglobin 28.8 pg (27.0-31.0); Mean Corpuscular Volume 84.9 fl (78.0-98.0); Mean Platelet Volume 8.1 fL (7.4-10.4); Platelet Count 190 10x3/uL (130-400); RBC Distribution Width 13.1 % (11.5-14.5); White Blood Cell (WBC) Count 9.1 10x3/uL (4.8-10.8)
[2022-08-23 04:30] LABS: PTT 30.4 sec (22.9-36.1)
[2022-08-23 04:40] LABS: Anion Gap 15 mmol/L (10-20); BUN (Urea Nitrogen) 19 mg/dL (8.4-25.7); Calc. Creatinine Clearance 98 mL/min (70-130); Calcium 9.2 mg/dL (7.8-10.44); Carbon Dioxide 24 mmol/L (23-31); Chloride 105 mmol/L (98-107); Estimated GFR 87; Glucose 127 mg/dL (83-110); Potassium 3.8 mmol/L (3.5-5.1); Sodium 140 mmol/L (136-145)
[2022-08-23] MEDS: Acetaminophen 500 MG TAB PO SCH ×4 (05:19→18:44)
[2022-08-23] MEDS ORDERED: Scopolamine 1.5 mg/72 hour Patch TD SCH (09:00)
[2022-08-23] MEDS: levETIRAcetam 500 MG/5 ML VIAL SLOW IVP SCH ×2 (11:04→20:50)
[2022-08-23] MEDS: Amlodipine 5 MG TAB PO SCH (11:05)
[2022-08-23] MEDS: Losartan 25 MG TAB PO SCH (11:05)
[2022-08-23] MEDS: Tamsulosin HCl 0.4 MG CAP PO SCH (20:49)
[2022-08-24] MEDS: Acetaminophen 500 MG TAB PO SCH ×4 (00:37→18:17)
[2022-08-24] MEDS ORDERED: levETIRAcetam 500 MG TAB PO SCH (09:00)
[2022-08-24] MEDS: Losartan 25 MG TAB PO SCH (09:50)
[2022-08-24] MEDS: Amlodipine 5 MG TAB PO SCH (09:50)
[2022-08-24 12:21] VITALS: BP 143/80
[2022-08-24 18:08] VITALS: TEMP 98.3
[2022-08-25] MEDS ORDERED: FLU VACC QS2022-23(65YR UP)/PF 240 MCG/0.7 ML SYRINGE IM ONE (09:00)
== END 2022-08-24 20:15 | DRG 87 ==
LOC: ERS 12:07 → IMCU/EMU 15:08
PROVIDERS: ADMIT Surgery; ATTEND Surgery
DX: S06.6X0A Traumatic subarachnoid hemorrhage without loss of consciousness, initial encounter (principal); S06.5X0A Traumatic subdural hemorrhage without loss of consciousness, initial encounter; N40.0 Benign prostatic hyperplasia without lower urinary tract symptoms; Z96.643 Presence of artificial hip joint, bilateral; Z20.822 Contact with and (suspected) exposure to COVID-19; W18.30XA Fall on same level, unspecified, initial encounter; I10 Essential (primary) hypertension; I44.4 Left anterior fascicular block; Z90.49 Acquired absence of other specified parts of digestive tract; Z87.891 Personal history of nicotine dependence; Z79.82 Long term (current) use of aspirin; Z79.899 Other long term (current) drug therapy
CPT/HCPCS: 36415; 70450; 70496; 71045; 72125; 80048; 80053; 80306; 81001; 83605; 84146; 84484; 85025; 85610; 85730; 93005; 93306; 93880; 96374; 96375; J1953; J2272; J2405; J7050; U0003; U0005

== ENCOUNTER 2022-09-09 07:28 | Outpatient (CLI) | payer MEDICARE, BC | END 2022-09-09 07:29 | disposition home or self-care (01) | LOC: BICCT 07:28 | PROVIDERS: ATTEND Physician Assistant Surgical | DX: S06.5X0D Traumatic subdural hemorrhage without loss of consciousness, subsequent encounter (principal); S06.35A Traumatic hemorrhage of left cerebrum with loss of consciousness status unknown; G93.6 Cerebral edema | CPT/HCPCS: 70450 ==

== ENCOUNTER 2022-10-18 10:06 | Outpatient (CLI) | payer MEDICARE, BC | END 2022-10-18 10:07 | disposition home or self-care (01) | LOC: BICCT 10:06 | PROVIDERS: ATTEND Neurological Surgery | DX: S06.5X0D Traumatic subdural hemorrhage without loss of consciousness, subsequent encounter (principal); S02.119D Unspecified fracture of occiput, subsequent encounter for fracture with routine healing | CPT/HCPCS: 70450 ==

== ENCOUNTER 2023-03-01 12:23 | Outpatient (CLI) | payer MEDICARE, BC | END 2023-03-01 12:24 | disposition home or self-care (01) | LOC: MRI 12:23 | PROVIDERS: ATTEND Psychiatry & Neurology Neurology | DX: R55 Syncope and collapse (principal) | CPT/HCPCS: 70553; A9579 ==

== ENCOUNTER 2023-03-07 13:58 | Outpatient (CLI) | payer MEDICARE, BC | END 2023-03-07 13:59 | disposition home or self-care (01) | LOC: EEG 13:58 | PROVIDERS: ATTEND Psychiatry & Neurology Neurology | DX: R55 Syncope and collapse (principal) | CPT/HCPCS: 95816; 95957 ==

== ENCOUNTER 2023-04-21 17:00 | Outpatient (CLI) | payer MEDICARE, BC | END 2023-04-21 17:01 | disposition home or self-care (01) | LOC: SLEEPLAB 17:00 | PROVIDERS: ATTEND Family Medicine | DX: G47.33 Obstructive sleep apnea (adult) (pediatric) (principal); G47.00 Insomnia, unspecified; I63.9 Cerebral infarction, unspecified; R06.83 Snoring; E66.9 Obesity, unspecified; R51.9 Headache, unspecified; I10 Essential (primary) hypertension; R53.83 Other fatigue | CPT/HCPCS: 95810 ==

== ENCOUNTER 2023-05-12 10:24 | Outpatient (CLI) | payer MEDICARE, BC | END 2023-05-12 10:25 | disposition home or self-care (01) | LOC: SCSCT 10:24 | PROVIDERS: ATTEND Psychiatry & Neurology Neurology | DX: I61.9 Nontraumatic intracerebral hemorrhage, unspecified (principal); G93.89 Other specified disorders of brain | CPT/HCPCS: 70450 ==

== ENCOUNTER 2023-05-19 17:00 | Outpatient (CLI) | payer MEDICARE, BC | END 2023-05-19 17:01 | disposition home or self-care (01) | LOC: SLEEPLAB 17:00 | PROVIDERS: ATTEND Family Medicine | DX: G47.33 Obstructive sleep apnea (adult) (pediatric) (principal); G47.00 Insomnia, unspecified; I63.9 Cerebral infarction, unspecified; R51.9 Headache, unspecified; E66.9 Obesity, unspecified; R06.83 Snoring; I10 Essential (primary) hypertension; R53.83 Other fatigue; Z68.30 Body mass index [BMI] 30.0-30.9, adult | CPT/HCPCS: 95811 ==

== ENCOUNTER 2023-05-26 12:22 | Outpatient (CLI) | payer MEDICARE, BC | END 2023-05-26 12:23 | disposition home or self-care (01) | LOC: CT 12:22 | PROVIDERS: ATTEND Psychiatry & Neurology Neurology | DX: M54.2 Cervicalgia (principal); M47.812 Spondylosis without myelopathy or radiculopathy, cervical region; M48.02 Spinal stenosis, cervical region | CPT/HCPCS: 72125 ==

== ENCOUNTER 2023-08-10 10:00 | Outpatient (CLI) | payer MEDICARE, BC | END 2023-08-10 10:01 | disposition home or self-care (01) | LOC: SCSMRI 10:00 | PROVIDERS: ATTEND Psychiatry & Neurology Neurology | DX: S06.360D Traumatic hemorrhage of cerebrum, unspecified, without loss of consciousness, subsequent encounter (principal); G93.89 Other specified disorders of brain | CPT/HCPCS: 70553 ==

== ENCOUNTER 2024-06-01 13:41 | Outpatient (CLI) | payer MEDICARE, BC | END 2024-06-01 13:42 | disposition home or self-care (01) | LOC: SCSRAD 13:41 | PROVIDERS: ATTEND Family Medicine | DX: M75.42 Impingement syndrome of left shoulder (principal); M19.012 Primary osteoarthritis, left shoulder ==

== ENCOUNTER 2024-07-12 11:52 | Outpatient (CLI) | payer MEDICARE, BC | END 2024-07-12 11:53 | disposition home or self-care (01) | LOC: SCSRAD 11:52 | DX: R06.00 Dyspnea, unspecified (principal) | CPT/HCPCS: 71046 ==

== ENCOUNTER 2025-04-23 11:03 | Outpatient (CLI) | payer MEDICARE, BC ==
[2025-04-23 12:15] LABS: #Basophils 0.03 10x3/uL (0.0-0.2); #Eosinophils 0.13 10x3/uL (0.0-0.7); #Monocytes 1.01 10x3/uL (0.11-0.59); #Neutrophils 6.73 10x3/uL (1.40-6.50); %Basophils 0.3 % (0.0-1.0); %Eosinophils 1.4 % (0.0-10.0); %Lymphocytes 12.0 % (21.0-51.0); %Monocytes 11.2 % (0.0-10.0); %Neutrophils 74.7 % (42.0-75.0); Hematocrit 47.6 % (42.0-52.0); Hemoglobin 15.4 g/dL (14.0-18.0); Mean Corpuscular Hemoglobin 26.8 pg (27.0-31.0); Mean Corpuscular Volume 82.8 fL (78.0-98.0); Platelet Count 169 10x3/uL (130-400); Red Blood Cell (RBC) Count 5.75 mill/uL (4.70-6.10); White Blood Cell (WBC) Count 9.02 10x3/uL (4.8-10.8)
[2025-04-23 12:30] LABS: INR-International Normal Ratio 1.1; Prothrombin Time 13.8 sec (12.0-14.7)
[2025-04-23 12:31] LABS: PTT 37.6 sec (22.9-36.1)
[2025-04-23 12:38] LABS: Anion Gap 15 mmol/L (10-20); BUN (Urea Nitrogen) 18 mg/dL (8.4-25.7); Calc. Creatinine Clearance 0 mL/min (70-130); Calcium 9.9 mg/dL (7.8-10.44); Carbon Dioxide 28 mmol/L (23-31); Chloride 102 mmol/L (98-107); Glucose 99 mg/dL (83-110); Potassium 4.4 mmol/L (3.5-5.1); Sodium 141 mmol/L (136-145)
[2025-04-23 15:37] LABS: Glucose, Urine (Dipstick) Normal (Negative); Leukocyte Negative Leu/uL (Negative); Protein, Urine (Dipstick) Negative (Neg-Trace); RBC/HPF 0-3 HPF (0-3); Specific Gravity, Urine 1.012 (1.002-1.036); WBC/HPF 0-3 HPF (0-3)
[2025-04-23 15:38] LABS: Bacteria/HPF 1+ HPF (None Seen)
== END 2025-04-23 11:04 | disposition home or self-care (01) ==
LOC: LABBT 11:03
PROVIDERS: ATTEND Urology
DX: Z01.818 Encounter for other preprocedural examination (principal); N20.1 Calculus of ureter; N40.1 Benign prostatic hyperplasia with lower urinary tract symptoms; N39.41 Urge incontinence; N28.1 Cyst of kidney, acquired; R35.0 Frequency of micturition; D3A.8 Other benign neuroendocrine tumors; Z87.820 Personal history of traumatic brain injury
CPT/HCPCS: 80048; 81001; 85025; 85610; 85730; 86850; 86900; 86901; 87077; 87086; 87186; 93005; 93010

== ENCOUNTER 2025-05-09 09:19 | Inpatient (IN) | payer MEDICARE, BC ==
[2025-05-09 10:49] LABS: #Basophils 0.03 10x3/uL (0.0-0.2); #Eosinophils 0.19 10x3/uL (0.0-0.7); #Monocytes 0.78 10x3/uL (0.11-0.59); #Neutrophils 4.64 10x3/uL (1.40-6.50); %Basophils 0.5 % (0.0-1.0); %Eosinophils 2.9 % (0.0-10.0); %Lymphocytes 12.7 % (21.0-51.0); %Monocytes 12.0 % (0.0-10.0); %Neutrophils 71.3 % (42.0-75.0); Hematocrit 44.7 % (42.0-52.0); Hemoglobin 14.3 g/dL (14.0-18.0); Mean Corpuscular Hemoglobin 26.5 pg (27.0-31.0); Mean Corpuscular Volume 82.8 fL (78.0-98.0); Platelet Count 169 10x3/uL (130-400); Red Blood Cell (RBC) Count 5.40 mill/uL (4.70-6.10); White Blood Cell (WBC) Count 6.51 10x3/uL (4.8-10.8)
[2025-05-09 10:56] LABS: CAUTI Indications for Culture Pelvic or flank pain; Glucose, Urine (Dipstick) Normal (Negative); Leukocyte 250 Leu/uL (Negative); Protein, Urine (Dipstick) 50 mg/dL (Neg-Trace); RBC/HPF Greater than 50 HPF (0-3); Specific Gravity, Urine 1.013 (1.002-1.036); WBC/HPF 21-50 HPF (0-3)
[2025-05-09 10:57] LABS: Bacteria/HPF 1+ HPF (None Seen)
[2025-05-09 10:58] LABS: Urine Culture Reflex Yes Yes
[2025-05-09 11:01] LABS: ALT (SGPT) 22 U/L (Less than 45); AST (SGOT) 31 U/L (11-34); Albumin 3.5 g/dL (3.1-4.5); Alkaline Phosphatase 49 U/L (40-110); Anion Gap 14 mmol/L (10-20); BUN (Urea Nitrogen) 18 mg/dL (8.4-25.7); Bilirubin, Total 0.6 mg/dL (0.3-1.2); Calc. Creatinine Clearance 0 mL/min (70-130); Calcium 9.3 mg/dL (7.8-10.44); Carbon Dioxide 27 mmol/L (23-31); Chloride 103 mmol/L (98-107); Globulin 3.9 g/dL (2.4-3.5); Glucose 139 mg/dL (83-110); Potassium 4.4 mmol/L (3.5-5.1); Sodium 140 mmol/L (136-145)
[2025-05-09] MEDS ORDERED: Cefepime 2 GM VIAL ONE (11:20)
[2025-05-09] MEDS ORDERED: VANCOMYCIN 2 GRAM/400 ML BAG ONE (11:53)
[2025-05-09] MEDS ORDERED: Mag-Al 1200 mg/1200 mg/30 ML UDCUP PO PRN (13:04)
[2025-05-09] MEDS ORDERED: Guaifenesin DM 100-10/5 ML UDCUP PO PRN (13:06)
[2025-05-09] MEDS ORDERED: Acetaminophen 325 MG TAB PO PRN (13:06)
[2025-05-09] MEDS ORDERED: Ondansetron PF 4 MG/2 ML Vial IVP PRN (13:06)
[2025-05-09] MEDS ORDERED: Melatonin 3 MG TAB PO PRN (13:06)
[2025-05-09] MEDS ORDERED: Electrolyte Replacement Protocol 1 EACH FS SCH (13:15)
[2025-05-09] MEDS ORDERED: [UNRECOGNIZED DRUG - REMARK] IVPB SCH (13:30)
[2025-05-09] MEDS ORDERED: Iopamidol-370 76% 500 ML MDV (1 ML CHARGE) ONE (14:30)
[2025-05-09 14:38] VITALS: BMI 29.8
[2025-05-09] MEDS: HYDROcodone/Acetaminophen 5/325 mg Tablet PO PRN (15:46)
[2025-05-09] MEDS: Hyoscyamine SL 0.125 MG TAB SL SCH (17:25)
[2025-05-09] MEDS: Famotidine/PF 20 mg/2ml Vial SLOW IVP SCH (20:14)
[2025-05-09] MEDS ORDERED: Vancomycin 1 GM in Premix 1 BAG IVPB SCH (21:00)
[2025-05-09] MEDS ORDERED: Vancomycin 1.5 GM / NS 500ML VIAL-2-BAG IVPB SCH (21:00)
[2025-05-10 05:54] LABS: #Basophils 0.03 10x3/uL (0.0-0.2); #Eosinophils 0.23 10x3/uL (0.0-0.7); #Monocytes 0.59 10x3/uL (0.11-0.59); #Neutrophils 2.85 10x3/uL (1.40-6.50); %Basophils 0.6 % (0.0-1.0); %Eosinophils 5.0 % (0.0-10.0); %Lymphocytes 19.4 % (21.0-51.0); %Monocytes 12.7 % (0.0-10.0); %Neutrophils 61.4 % (42.0-75.0); Hematocrit 38.4 % (42.0-52.0); Hemoglobin 12.6 g/dL (14.0-18.0); Mean Corpuscular Hemoglobin 26.9 pg (27.0-31.0); Mean Corpuscular Volume 81.9 fL (78.0-98.0); Platelet Count 154 10x3/uL (130-400); Red Blood Cell (RBC) Count 4.69 mill/uL (4.70-6.10); White Blood Cell (WBC) Count 4.64 10x3/uL (4.8-10.8)
[2025-05-10 06:06] LABS: Anion Gap 10 mmol/L (10-20); BUN (Urea Nitrogen) 16 mg/dL (8.4-25.7); Calc. Creatinine Clearance 77 mL/min (70-130); Calcium 8.6 mg/dL (7.8-10.44); Carbon Dioxide 24 mmol/L (23-31); Chloride 109 mmol/L (98-107); Glucose 126 mg/dL (83-110); Potassium 3.6 mmol/L (3.5-5.1); Sodium 139 mmol/L (136-145)
[2025-05-10] MEDS ORDERED: Bisacodyl 10 MG SUPP PR PRN (07:50)
[2025-05-10] MEDS: Magnesium Oxide 400 MG TAB PO SCH (09:29)
[2025-05-10] MEDS: Losartan 25 MG TAB PO SCH (09:29)
[2025-05-10] MEDS: Multivit, Therapeutic 1 TAB PO SCH (09:30)
[2025-05-10] MEDS: Pantoprazole 40 MG DR.TAB PO SCH (09:30)
[2025-05-11 06:16] LABS: #Basophils 0.03 10x3/uL (0.0-0.2); #Eosinophils 0.21 10x3/uL (0.0-0.7); #Monocytes 0.60 10x3/uL (0.11-0.59); #Neutrophils 4.89 10x3/uL (1.40-6.50); %Basophils 0.4 % (0.0-1.0); %Eosinophils 3.1 % (0.0-10.0); %Lymphocytes 14.9 % (21.0-51.0); %Monocytes 8.8 % (0.0-10.0); %Neutrophils 72.2 % (42.0-75.0); Hematocrit 43.4 % (42.0-52.0); Hemoglobin 14.1 g/dL (14.0-18.0); Mean Corpuscular Hemoglobin 26.4 pg (27.0-31.0); Mean Corpuscular Volume 81.1 fL (78.0-98.0); Platelet Count 194 10x3/uL (130-400); Red Blood Cell (RBC) Count 5.35 mill/uL (4.70-6.10); White Blood Cell (WBC) Count 6.78 10x3/uL (4.8-10.8)
[2025-05-11 06:33] LABS: Anion Gap 12 mmol/L (10-20); BUN (Urea Nitrogen) 11 mg/dL (8.4-25.7); Calc. Creatinine Clearance 72 mL/min (70-130); Calcium 9.4 mg/dL (7.8-10.44); Carbon Dioxide 23 mmol/L (23-31); Chloride 107 mmol/L (98-107); Glucose 127 mg/dL (83-110); Magnesium 2.0 mg/dL (1.6-2.6); Potassium 3.8 mmol/L (3.5-5.1); Sodium 138 mmol/L (136-145)
[2025-05-11] MEDS: HYDROcodone/Acetaminophen 5/325 mg Tablet PO PRN (06:47)
[2025-05-12 06:37] LABS: #Basophils Less than 0.03 10x3/uL (0.0-0.2); #Eosinophils 0.21 10x3/uL (0.0-0.7); #Monocytes 0.61 10x3/uL (0.11-0.59); #Neutrophils 4.25 10x3/uL (1.40-6.50); %Basophils 0.3 % (0.0-1.0); %Eosinophils 3.5 % (0.0-10.0); %Lymphocytes 15.8 % (21.0-51.0); %Monocytes 10.0 % (0.0-10.0); %Neutrophils 69.9 % (42.0-75.0); Hematocrit 40.5 % (42.0-52.0); Hemoglobin 13.4 g/dL (14.0-18.0); Mean Corpuscular Hemoglobin 26.8 pg (27.0-31.0); Mean Corpuscular Volume 81.0 fL (78.0-98.0); Platelet Count 175 10x3/uL (130-400); Red Blood Cell (RBC) Count 5.00 mill/uL (4.70-6.10); White Blood Cell (WBC) Count 6.08 10x3/uL (4.8-10.8)
[2025-05-12 07:01] LABS: Anion Gap 16 mmol/L (10-20); BUN (Urea Nitrogen) 18 mg/dL (8.4-25.7); Calc. Creatinine Clearance 72 mL/min (70-130); Calcium 9.5 mg/dL (7.8-10.44); Carbon Dioxide 23 mmol/L (23-31); Chloride 105 mmol/L (98-107); Glucose 130 mg/dL (83-110); Potassium 4.1 mmol/L (3.5-5.1); Sodium 140 mmol/L (136-145)
[2025-05-12] MEDS: FLU (Fluad Triv) 25-26 (65UP)PF 45 MCG/0.5 ML Syringe IM ONE (08:02)
[2025-05-12 12:10] VITALS: BP 135/75; TEMP 97.4
== END 2025-05-12 14:35 | disposition home or self-care (01) | DRG 690 ==
LOC: ERS 09:19 → SUATTDRO 09:19 → SURG A 12:47
PROVIDERS: ADMIT Internal Medicine; ATTEND Internal Medicine
DX: N39.0 Urinary tract infection, site not specified (principal); E78.5 Hyperlipidemia, unspecified; N40.0 Benign prostatic hyperplasia without lower urinary tract symptoms; I12.9 Hypertensive chronic kidney disease with stage 1 through stage 4 chronic kidney disease, or unspecified chronic kidney disease; Z96.643 Presence of artificial hip joint, bilateral; E03.9 Hypothyroidism, unspecified; N18.2 Chronic kidney disease, stage 2 (mild); E87.6 Hypokalemia; Z90.49 Acquired absence of other specified parts of digestive tract; Z86.73 Personal history of transient ischemic attack (TIA), and cerebral infarction without residual deficits; Z98.890 Other specified postprocedural states; Z87.891 Personal history of nicotine dependence; Z79.890 Hormone replacement therapy; Z79.899 Other long term (current) drug therapy
CPT/HCPCS: 36415; 71045; 74178; 74420; 80048; 80053; 81001; 83605; 83735; 85025; 86850; 86900; 86901; 87040; 87086; 88305; 93005; 96365; 96367; A4333; C1758; C1769; C2617; J0692; J1308; J1956; J2272; J2405; J2543; J2704; J3010; J3375; J7030; Q9967

== ENCOUNTER 2025-05-23 11:22 | Outpatient (CLI) | payer MEDICARE, BC ==
[2025-05-23 12:36] LABS: #Basophils 0.03 10x3/uL (0.0-0.2); #Eosinophils 0.37 10x3/uL (0.0-0.7); #Monocytes 0.53 10x3/uL (0.11-0.59); #Neutrophils 3.26 10x3/uL (1.40-6.50); %Basophils 0.6 % (0.0-1.0); %Eosinophils 7.0 % (0.0-10.0); %Lymphocytes 18.9 % (21.0-51.0); %Monocytes 10.1 % (0.0-10.0); %Neutrophils 62.1 % (42.0-75.0); Hematocrit 46.2 % (42.0-52.0); Hemoglobin 14.6 g/dL (14.0-18.0); Mean Corpuscular Hemoglobin 26.3 pg (27.0-31.0); Mean Corpuscular Volume 83.2 fL (78.0-98.0); Platelet Count 199 10x3/uL (130-400); Red Blood Cell (RBC) Count 5.55 mill/uL (4.70-6.10); White Blood Cell (WBC) Count 5.25 10x3/uL (4.8-10.8)
[2025-05-23 12:38] LABS: Glucose, Urine (Dipstick) Normal (Negative); Leukocyte 250 Leu/uL (Negative); Protein, Urine (Dipstick) 10 mg/dL (Neg-Trace); RBC/HPF Greater than 50 HPF (0-3); Specific Gravity, Urine 1.016 (1.002-1.036)
[2025-05-23 12:39] LABS: Bacteria/HPF 1+ HPF (None Seen)
[2025-05-23 12:49] LABS: INR-International Normal Ratio 1.0; Prothrombin Time 12.8 sec (12.0-14.7)
[2025-05-23 12:50] LABS: PTT 34.3 sec (22.9-36.1)
[2025-05-23 13:04] LABS: Anion Gap 14 mmol/L (10-20); BUN (Urea Nitrogen) 21 mg/dL (8.4-25.7); Calc. Creatinine Clearance 0 mL/min (70-130); Calcium 10.1 mg/dL (7.8-10.44); Carbon Dioxide 28 mmol/L (23-31); Chloride 104 mmol/L (98-107); Glucose 112 mg/dL (83-110); Potassium 4.0 mmol/L (3.5-5.1); Sodium 142 mmol/L (136-145)
== END 2025-05-23 11:23 | disposition home or self-care (01) ==
LOC: LABBT 11:22
PROVIDERS: ATTEND Internal Medicine Cardiovascular Disease
DX: Z01.812 Encounter for preprocedural laboratory examination (principal); N20.1 Calculus of ureter; R35.0 Frequency of micturition; N28.1 Cyst of kidney, acquired; D49.4 Neoplasm of unspecified behavior of bladder; N39.41 Urge incontinence
CPT/HCPCS: 80048; 81001; 85025; 85610; 85730; 87077; 87086; 87186

== ENCOUNTER 2025-05-30 08:10 | Outpatient (CLI) | payer MEDICARE, BC ==
[2025-05-30 08:52] LABS: #Basophils 0.03 10x3/uL (0.0-0.2); #Eosinophils 0.41 10x3/uL (0.0-0.7); #Monocytes 0.49 10x3/uL (0.11-0.59); #Neutrophils 3.52 10x3/uL (1.40-6.50); %Basophils 0.6 % (0.0-1.0); %Eosinophils 7.6 % (0.0-10.0); %Lymphocytes 16.8 % (21.0-51.0); %Monocytes 9.0 % (0.0-10.0); %Neutrophils 64.9 % (42.0-75.0); Hematocrit 44.8 % (42.0-52.0); Hemoglobin 14.2 g/dL (14.0-18.0); Mean Corpuscular Hemoglobin 26.3 pg (27.0-31.0); Mean Corpuscular Volume 83.0 fL (78.0-98.0); Platelet Count 164 10x3/uL (130-400); Red Blood Cell (RBC) Count 5.40 mill/uL (4.70-6.10); White Blood Cell (WBC) Count 5.42 10x3/uL (4.8-10.8)
[2025-05-30 09:02] LABS: Anion Gap 16 mmol/L (10-20); BUN (Urea Nitrogen) 22 mg/dL (8.4-25.7); Calc. Creatinine Clearance 0 mL/min (70-130); Calcium 9.6 mg/dL (7.8-10.44); Carbon Dioxide 23 mmol/L (23-31); Chloride 104 mmol/L (98-107); Glucose 190 mg/dL (83-110); Potassium 3.8 mmol/L (3.5-5.1); Sodium 139 mmol/L (136-145)
[2025-05-30 09:05] LABS: INR-International Normal Ratio 1.1; PTT 34.3 sec (22.9-36.1); Prothrombin Time 13.8 sec (12.0-14.7)
[2025-05-30 09:49] LABS: Glucose, Urine (Dipstick) Normal (Negative); Leukocyte 75 Leu/uL (Negative); Protein, Urine (Dipstick) 50 mg/dL (Neg-Trace); RBC/HPF Greater than 50 HPF (0-3); Specific Gravity, Urine 1.022 (1.002-1.036)
[2025-05-30 09:59] LABS: Bacteria/HPF 1+ HPF (None Seen)
== END 2025-05-30 08:11 | disposition home or self-care (01) ==
LOC: LABBT 08:10
PROVIDERS: ATTEND Urology
DX: Z01.812 Encounter for preprocedural laboratory examination (principal); N20.1 Calculus of ureter; R35.0 Frequency of micturition; N39.41 Urge incontinence; N28.1 Cyst of kidney, acquired; D49.4 Neoplasm of unspecified behavior of bladder
CPT/HCPCS: 80048; 81001; 85025; 85610; 85730; 87086

== ENCOUNTER 2025-06-03 06:24 | Day surgery (SDC) | payer MEDICARE, BC ==
[2025-05-23 11:36] VITALS: BMI 29.8
[2025-06-03] MEDS ORDERED: Famotidine/PF 20 mg/2ml Vial ONE (06:54)
[2025-06-03] MEDS ORDERED: LevoFLOXacin D5W 500 mg (100 mL) BAG ONE (06:56)
[2025-06-03] MEDS ORDERED: PROPOFOL 200 MG/20 ML VIAL ONE (09:19)
[2025-06-03] MEDS ORDERED: Rocuronium Bromide 10 MG/ML (10ML VIAL) ONE (09:19)
[2025-06-03] MEDS ORDERED: Ondansetron PF 4 MG/2 ML Vial ONE (09:19)
[2025-06-03] MEDS ORDERED: SUGAMMADEX SODIUM 200 MG/2 ML VIAL ONE (09:25)
== END 2025-06-03 14:17 | disposition home or self-care (01) ==
LOC: SDC 06:24
PROVIDERS: ATTEND Urology
PROC: 0T778DZ Dilation of Left Ureter with Intraluminal Device, Via Natural or Artificial Opening Endoscopic (ICD-10-PCS; principal; 2025-06-03)
PROC: 0TC78ZZ Extirpation of Matter from Left Ureter, Via Natural or Artificial Opening Endoscopic (ICD-10-PCS; 2025-06-03)
DX: N20.1 Calculus of ureter (principal); N40.1 Benign prostatic hyperplasia with lower urinary tract symptoms; R35.0 Frequency of micturition; N39.41 Urge incontinence; N28.1 Cyst of kidney, acquired; D3A.8 Other benign neuroendocrine tumors; C67.2 Malignant neoplasm of lateral wall of bladder; I10 Essential (primary) hypertension; Z96.643 Presence of artificial hip joint, bilateral; Z87.891 Personal history of nicotine dependence; Z96.1 Presence of intraocular lens; Z79.899 Other long term (current) drug therapy
CPT/HCPCS: 52332; 52352; 74420; 82365; J0290; J1308; J1956; J3010; Q9967; 88300; C1758; C1769; C2617; J1100; J2405; J2704